=== PATIENT | male | born 1965 | race Two or more races ===

== ENCOUNTER 2016-12-07 01:03 | Inpatient (IN) | payer SELFPAY ==
[~2016-12-07] VITALS: Ht 172.7 cm; Wt 91.2 kg
[2016-12-07] VITALS (11 sets, daily range): BP systolic 91–136; BP diastolic 47–79
[2016-12-07] MEDS ORDERED: DILTIAZEM IV PUSH 25 MG/5 ML VIAL. IVP ONE (01:30)
[2016-12-07] MEDS ORDERED: DILTIAZEM 125 MG in IV DEXTROSE 5% 100 ML IV PRN (01:30)
[2016-12-07] MEDS ORDERED: ASPIRIN 81 MG TAB.CHEW PO ONE (01:30)
[2016-12-07 01:41] LABS: BASO # 0.1 x10^3/uL (0.0-0.2); BASO % 1 % (0-3); EOS % 1 % (0-3); HEMATOCRIT 50.2 % (39.0-53.0); HEMOGLOBIN 16.6 g/dL (13.0-17.5); LYMPH # 4.9 x10^3/uL (1.0-4.8); LYMPH % 46 % (24-48); MEAN CORPUSCULAR HEMOGLOBIN 29 pg (25-35); MEAN CORPUSCULAR HGB CONC 33 g/dL (31-37); MEAN CORPUSCULAR VOLUME 86 fL (79-100); MONO % 8 % (0-9); NEUT % 45 % (31-73); PLATELET COUNT 215 x10^3/uL (140-400); RED BLOOD COUNT 5.83 x10^6/uL (4.30-5.70); RED CELL DISTRIBUTION WIDTH 13.8 % (11.5-14.5); WHITE BLOOD COUNT 10.9 x10^3/uL (4.0-11.0)
[2016-12-07 01:58] LABS: CALCIUM 9.2 mg/dL (8.5-10.1); CREATININE 1.2 mg/dL (0.7-1.3); GFR 64.4; POTASSIUM 4.1 mmol/L (3.5-5.1)
[2016-12-07 02:01] LABS: ALBUMIN 3.9 g/dL (3.4-5.0); DIRECT BILIRUBIN 0.1 mg/dL (0.0-0.2); TOTAL BILIRUBIN 0.4 mg/dL (0.2-1.0); TOTAL PROTEIN 6.9 g/dL (6.4-8.2)
[2016-12-07] MEDS ORDERED: MORPHINE SULFATE 2 MG/ML DISP.SYRIN. IV PRN (04:30)
[2016-12-07] MEDS ORDERED: ONDANSETRON PF 4 MG/2 ML VIAL. IV PRN ×2 (04:30→11:15)
--- NOTE | 2016-12-07 05:46 | PHYS DOC ---
Past Medical History Past Medical History: High Cholesterol, Hypertension Past Surgical History: No Surgical History Alcohol Use: None Drug Use: None Adult General Chief Complaint Chief Complaint: CHEST PAIN HPI HPI 51-year-old male presenting to the emergency department today with palpitations and pain on the right side of his chest. The pain is sharp nonradiating. He also has associated shortness of breath with nausea. He denies diaphoresis. It started approximately 7:00 last night and is constant. Review of systems is negative for abdominal pain. Positive for nausea without vomiting. Negative for fevers or chills. All other review of systems is negative unless otherwise noted in history of present illness. Review of Systems Review of Systems SEE ABOVE. Current Medications Current Medications Current Medications Medications (Trade) Dose Ordered Sig/Sergio Start Time Stop Time Status Last Admin Dose Admin Aspirin (Children'S Aspirin) 324 mg 1X ONCE 12/07/16 01:30 12/07/16 01:31 DC Diltiazem HCl 20 mg 20 mg 1X ONCE 12/07/16 01:30 12/07/16 01:31 DC 12/07/16 01:44 20 MG Diltiazem HCl/ Dextrose (Cardizem) 125 ml @ 0 mls/hr CONT PRN 12/07/16 01:30 12/07/16 01:45 5 MLS/HR Allergies Allergies Allergies Coded Allergies Type Severity Reaction Last Updated Verified morphine Allergy Unknown 12/07/16 Yes Physical Exam Physical Exam Constitutional: Well developed, well nourished, no acute distress, non-toxic appearance. [] HENT: Normocephalic, atraumatic, bilateral external ears normal, oropharynx moist, no oral exudates, nose normal. [] Eyes: PERRLA, EOMI, conjunctiva normal, no discharge. [] Neck: Normal range of motion, no tenderness, supple, no stridor. [] Cardiovascular: Tachycardic rate with an irregular rhythm. No murmur present. Lungs & Thorax: Bilateral breath sounds clear to auscultation [] Abdomen: Bowel sounds normal, soft, no tenderness, no masses, no pulsatile masses. [] Skin: Warm, dry, no erythema, no rash. [] Back: No tenderness, no CVA tenderness. [] Extremities: No tenderness, no cyanosis, no clubbing, ROM intact, no edema. [] Neurologic: Alert and oriented X 3, normal motor function, normal sensory function, no focal deficits noted. [] Psychologic: Affect normal, judgement normal, mood normal. [] Current Patient Data Vital Signs Vital Signs Date Time Temp Pulse Resp B/P Pulse Ox O2 Delivery O2 Flow Rate FiO2 12/07/16 04:00 92 100/53 100 Room Air 12/07/16 01:09 97.7 18 97.7 Lab Values Laboratory Tests Test 12/07/16 01:30 White Blood Count 10.9x10^3/uL (4.0-11.0) Red Blood Count 5.83x10^6/uL (4.30-5.70) H Hemoglobin 16.6g/dL (13.0-17.5) Hematocrit 50.2% (39.0-53.0) Mean Corpuscular Volume 86fL (79-100) Mean Corpuscular Hemoglobin 29pg (25-35) Mean Corpuscular Hemoglobin Concent 33g/dL (31-37) Red Cell Distribution Width 13.8% (11.5-14.5) Platelet Count 215x10^3/uL (140-400) Neutrophils (%) (Auto) 45% (31-73) Lymphocytes (%) (Auto) 46% (24-48) Monocytes (%) (Auto) 8% (0-9) Eosinophils (%) (Auto) 1% (0-3) Basophils (%) (Auto) 1% (0-3) Neutrophils # (Auto) 4.9x10^3uL (1.8-7.7) Lymphocytes # (Auto) 4.9x10^3/uL (1.0-4.8) H Monocytes # (Auto) 0.9x10^3/uL (0.0-1.1) Eosinophils # (Auto) 0.1x10^3/uL (0.0-0.7) Basophils # (Auto) 0.1x10^3/uL (0.0-0.2) Sodium Level 143mmol/L (136-145) Potassium Level 4.1mmol/L (3.5-5.1) Chloride Level 104mmol/L (98-107) Carbon Dioxide Level 32mmol/L (21-32) Anion Gap 7 (6-14) Blood Urea Nitrogen 18mg/dL (8-26) Creatinine 1.2mg/dL (0.7-1.3) Estimated GFR (Cockcroft-Gault) 64.4 Glucose Level 102mg/dL (70-99) H Calcium Level 9.2mg/dL (8.5-10.1) Total Bilirubin 0.4mg/dL (0.2-1.0) Direct Bilirubin 0.1mg/dL (0.0-0.2) Aspartate Amino Transferase (AST) 18U/L (15-37) Alanine Aminotransferase (ALT) 28U/L (16-63) Alkaline Phosphatase 59U/L (46-116) Troponin I Quantitative < 0.017ng/mL (0.000-0.055) AP-Fej-R-Type Natriuretic Peptide 50pg/mL (0-124) Total Protein 6.9g/dL (6.4-8.2) Albumin 3.9g/dL (3.4-5.0) Lipase 120U/L (73-393) Laboratory Tests 12/07/16 01:30 Laboratory Tests 12/07/16 01:30 EKG EKG [] Irregular rhythm with a tachycardic rate. ST segments congruent. Mclean and intervals are within normal limits. Radiology/Procedures Radiology/Procedures [] Course & Med Decision Making Course & Med Decision Making Pertinent Labs and Imaging studies reviewed. (See chart for details) [] 51-year-old male presenting to the emergency department with palpitations found to have A. fib with RVR. EKG showed A. fib with RVR. Physical exam otherwise unremarkable. Blood work obtained aspirin given. Diltiazem push and drip given. Troponin negative. Patient was subsequently admitted to our hospital for further evaluation workup and care. Dragon Disclaimer Dragon Disclaimer This electronic medical record was generated, in whole or in part, using a voice recognition dictation system. Departure Departure Impression: Primary Impression: Atrial fibrillation with RVR Additional Impression: Chest pain Disposition: 09 ADMITTED INPATIENT Admitting Physician: Bteo Melendez Condition: STABLE Referrals: NO PCP (PCP) Problem Qualifiers CARMINA RÍOS MD Dec 07, 2016 05:45
--- NOTE | 2016-12-07 07:45 | RAD ---
Single view chest History:Chest pain . An AP view of the chest is submitted. Comparison: None. Findings: There is no significant infiltrate, pleural effusion, or pneumothorax. The pericardial cardiac silhouette is within normal limits in size. The trachea is in the midline. No acute osseous abnormality is identified. Impression: There is no evidence of acute cardiopulmonary disease.
--- NOTE | 2016-12-07 08:54 | ACF ---
Admit Criteria Forms Admit Criteria Forms Admit Criteria Forms ATRIAL FIBRILLATION Clinical Indications for Admission to Inpatient Care (Place 'X' for any and all applicable criteria): Admission indicated for ANY ONE of the following(1)(2)(3)(4)(5) : [ ]I. Myocardial ischemia [ ]II. Dyspnea or hypoxemia [ ]III. Hemodynamic instability [ ]IV. Heart failure (e.g., pulmonary edema) (7) [ ]V. New-onset (less than 48 hours) atrial fibrillation with high risk for causing complications secondary to comorbidities (eg, symptomatic heart failure ) [ ]. Altered mental status [ ]VII. Syncope [ ]VIII. Patient has implantable cardioverter defibrillator that has fired more than once within past 24hr or needs immediate adjustment of settings that cannot be done other than in inpatient setting. (8) [ ]IX. Suspected accessory pathway (e.g., Pqggz-Prirgkmvt-Ppayh syndrome) on ECG [ ]X. Recent systemic thromboembolism (eg, stroke) [ ]XI. Medication toxicity (e.g., digitalis) causing arrhythmia(9) [ ]XII. Underlying medical condition that necessitates inpatient care (e.g., thyrotoxicosis, pneumonia) (10) [ ]XIII. Continuous ECG monitoring is required for condition causing arrhythmia (e.g., severe hyperkalemia, hypokalemia, acid-base disturbance).(11)(12)(13) [X]XIV. Initiation of antiarrhythmic drug therapy is needed in patient at high risk of adverse effects as indicated by ANY ONE of the following: [ ]a) Significant structural heart disease (e.g., reduced ejection fraction, congenital heart disease, valvular heart disease) [ ]b) Prolonged QT interval [ ]c) Underlying sinus node or atrioventricular conduction disturbances [X]d) Need for treatment with antiarrhythmic drugs that have significant proarrhythmic potential (e.g., dofetilide, sotalol, procainamide) [ ]e) Patient whose sinus rhythm has never been observed on ECG [ ]XV. Intolerable symptoms despite optimal outpatient treatment [ ]XVI. Elective or urgent cardioversion that cannot be performed on outpatient basis or during observation care. [A] (Use also Atrial Fibrillation: Observation Care ) as appropriate.(14) [ ]XVII.Contraindications and/or Inappropriate clinical situations for Observational Care in patients with Atrial Fibrillation, when ANY ONE of the following is required: [ ]a) Patient with High risk of cardiac embolism (e.g, patients with previous cardiac embolism, LVEF < 40%, age >75 and patients with prosthetic valve) 18 [ ]b) Patient with Moderate risk including DM patient, CAD and patient aged 65-75 18 [ ]c) Patient with any change in cardiac biomarker especially troponin should be managed as high risk in an inpatient setting 19 [ ]d) Physician judgement irrespective of ECG and other diagnostic findings 20 [ ]XVIII.General contraindications and/or Inappropriate clinical situations for Observational Care in patients with Atrial Fibrillation, when ANY ONE of the following is required: [ ]a) Prediction of prolongation of LOS based on ANY ONE of the following may be considered as a contraindication for observational care 2, 3, 4, 5, 6, 7, 8, 9, 10, 11 [ ]i) Age > 65 yrs. [ ]ii) Patient arriving by ambulance [ ]iii) Patient with high acuity [ ]iv) Patient requiring vital sign monitoring [ ]v) Patient on IV medication [ ]b) Systolic blood pressures 180mmHg 3,12 [ ]c) Patient with altered mental status including delirium and other alteration of consciousness3 [ ]d) Patient whose discharge disposition will be to a [facility] home or rehabilitation home should not be managed in Emergency Department Observation Unit. CMS rule requires 3 days hospital stay before such placement.3,13 [ ]e) Patient with failure to thrive due to broad array of etiologies 3,16,17 [ ]f) Inability to ambulate 3,14 Extended stay beyond goal length of stay may be needed for (1)(25)(26): [ ]a) Unstable comorbidities [ ]b) Persistently uncontrolled atrial fibrillation or other arrhythmias [ ]c) Acute thromboembolic event (e.g., stroke, limb ischemia) [ ]d) Need for inpatient attainment of full anticoagulation The original [employer] content created by [employer] has been revised. The portions of the content which have been revised are identified through the use of italic text or in bold, and [employer] has neither reviewed nor approved the modified material. All other unmodified content is copyright [employer]. Please see references footnoted in the original [employer] edition 2016 JOSY FABIAN 11, 2017 08:53
[2016-12-07] MEDS ORDERED: ANTI-COAG MONITOR BY PHARMACY. MC PRN (09:15)
[2016-12-07] MEDS: DILTIAZEM HCL 120 MG CAP.ER.24H PO SCH (09:48)
[2016-12-07] MEDS: APIXABAN 5 MG TABLET. PO SCH ×2 (09:48→20:48)
--- NOTE | 2016-12-07 10:00 | CONS ---
DATE OF CONSULTATION: 12/07/2016 REASON FOR CONSULTATION: Atrial fibrillation. HISTORY OF PRESENT ILLNESS: The patient is a 51-year-old gentleman with past medical history as noted below, who presents to the hospital in the setting of palpitations. Upon admission to the ER, he was noted to have atrial fibrillation with a rapid ventricular response and was [facility] for titration of Cardizem therapy and evaluation of the AFib. The patient denies any chest pain, but does have some dyspnea. No syncope. No lower extremity edema. The patient denies any prior history of arrhythmia. No prior cardiovascular disease. PAST MEDICAL HISTORY: 1. Hypertension. 2. Obstructive sleep apnea. 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 He is . Denies any alcohol, tobacco or illicit drug use. FAMILY HISTORY: No early coronary artery disease or sudden cardiac . ALLERGIES: TO ASPIRIN AND MORPHINE. REVIEW OF SYSTEMS: Negative for 10 out of 14 systems reviewed, unless otherwise mentioned above in HPI. PHYSICAL EXAMINATION: VITAL SIGNS: Afebrile, heart rate 110, blood pressure 110/73, pulse ox 97% on room air. GENERAL: He is alert and oriented, in no acute distress. HEAD AND NECK: Unremarkable. CARDIAC: Irregularly irregular rhythm without any murmurs, rubs or gallops. LUNGS: Clear to auscultation bilaterally. ABDOMEN: Soft, nontender, nondistended. EXTREMITIES: No clubbing, cyanosis or edema. 2+ radial and dorsalis pedis pulses. NEUROLOGIC: No focal deficits. MUSCULOSKELETAL: No trauma. DIAGNOSTIC STUDIES: Hemoglobin, platelets within normal limits. Basic metabolic profile within normal limits. Cardiac enzymes negative x 1. Chest x-ray is unremarkable. EKG demonstrates atrial fibrillation with a rapid ventricular response. IMPRESSION: 1. New onset atrial fibrillation, likely in the setting of obesity, hypertension and obstructive sleep apnea. RECOMMENDATIONS: 1. After discussion of risks and benefits of anticoagulation, we will initiate the patient Eliquis 5 mg p.o. b.i.d. with the aim of planing had to go with a CARLEY-guided cardioversion in approximately 24-48 hours after adequate anticoagulation and rate control. Thank you for this consultation. RITU JAMES MD DR: SANTOS/charlie JOB#: [id number] / [id number]
--- NOTE | 2016-12-07 11:14 | PDOC1 ---
History and Physical Current Problem List Problem List Problems Medical Problems: (1) Atrial fibrillation with RVR Status: Acute (2) Chest pain Status: Acute Current Medications Current Medications Current Medications Medications (Trade) Dose Ordered Sig/[facility] Start Time Stop Time Status Last Admin Dose Admin Apixaban (Eliquis) 5 mg BID 12/07/16 10:00 12/07/16 09:48 5 MG Aspirin (Children'S Aspirin) 324 mg 1X ONCE 12/07/16 01:30 12/07/16 01:31 DC Diltiazem HCl (Cardizem 24hr Cd) 120 mg DAILY 12/07/16 10:00 12/07/16 09:48 120 MG Diltiazem HCl 20 mg 20 mg 1X ONCE 12/07/16 01:30 12/07/16 01:31 DC 12/07/16 01:44 20 MG Diltiazem HCl/ Dextrose (Cardizem) 125 ml @ 0 mls/hr CONT PRN 12/07/16 01:30 12/07/16 01:45 5 MLS/HR Info (Anti-Coagulation Monitoring By Pharmacy) 1 each PRN DAILY PRN 12/07/16 09:15 Morphine Sulfate 2 mg PRN Q2HR PRN 12/07/16 04:30 12/08/16 04:29 Ondansetron HCl (Zofran) 4 mg PRN Q8HRS PRN 12/07/16 04:30 12/08/16 04:29 Allergies Allergies Allergies Coded Allergies Type Severity Reaction Last Updated Verified aspirin Allergy Unknown 12/07/16 Yes morphine Allergy Unknown 12/07/16 Yes ROS Review of System CONSTITUTIONAL: No fever or chills EYES: No recent changes SKIN: No rash or itching CARDIOVASCULAR: No chest pain, syncope, palpitations, or edema RESPIRATORY: No SOB or cough GASTROINTESTINAL: No nausea, vomiting or abdominal pain NEUROLOGICAL: No headaches or weakness ENDOCRINE: No cold or heat intolerance GENITOURINARY: No urgency or frequency of urination MUSCULOSKELETAL: No back pain or joint pain LYMPHATICS: No enlarged lymph nodes PSYCHIATRIC: No anxiety or depression Physical Exam Physical Exam GEN.: No apparent distress. Alert and oriented. HEENT: Head is normocephalic, atraumatic NECK: Supple. no jvd LUNGS: Clear to auscultation. normal airflow HEART: RRR, S1, S2 present. Peripheral pulses intact ABDOMEN: Soft, nontender. Positive bowel sounds. EXTREMITIES: Without any cyanosis. NEUROLOGIC: Normal speech, normal tone PSYCHIATRIC: Normal affect, normal mood. SKIN: No ulcerations Vitals Vitals Vital Signs Date Time Temp Pulse Resp B/P Pulse Ox O2 Delivery O2 Flow Rate FiO2 12/07/16 09:48 91 132/61 12/07/16 07:55 18 12/07/16 05:47 Room Air 12/07/16 04:40 100 12/07/16 01:09 97.7 97.7 Labs Labs Laboratory Tests Test 12/07/16 01:30 White Blood Count 10.9x10^3/uL (4.0-11.0) Red Blood Count 5.83x10^6/uL (4.30-5.70) Hemoglobin 16.6g/dL (13.0-17.5) Hematocrit 50.2% (39.0-53.0) Mean Corpuscular Volume 86fL (79-100) Mean Corpuscular Hemoglobin 29pg (25-35) Mean Corpuscular Hemoglobin Concent 33g/dL (31-37) Red Cell Distribution Width 13.8% (11.5-14.5) Platelet Count 215x10^3/uL (140-400) Neutrophils (%) (Auto) 45% (31-73) Lymphocytes (%) (Auto) 46% (24-48) Monocytes (%) (Auto) 8% (0-9) Eosinophils (%) (Auto) 1% (0-3) Basophils (%) (Auto) 1% (0-3) Neutrophils # (Auto) 4.9x10^3uL (1.8-7.7) Lymphocytes # (Auto) 4.9x10^3/uL (1.0-4.8) Monocytes # (Auto) 0.9x10^3/uL (0.0-1.1) Eosinophils # (Auto) 0.1x10^3/uL (0.0-0.7) Basophils # (Auto) 0.1x10^3/uL (0.0-0.2) Sodium Level 143mmol/L (136-145) Potassium Level 4.1mmol/L (3.5-5.1) Chloride Level 104mmol/L (98-107) Carbon Dioxide Level 32mmol/L (21-32) Anion Gap 7 (6-14) Blood Urea Nitrogen 18mg/dL (8-26) Creatinine 1.2mg/dL (0.7-1.3) Estimated GFR (Cockcroft-Gault) 64.4 Glucose Level 102mg/dL (70-99) Calcium Level 9.2mg/dL (8.5-10.1) Total Bilirubin 0.4mg/dL (0.2-1.0) Direct Bilirubin 0.1mg/dL (0.0-0.2) Aspartate Amino Transf (AST/SGOT) 18U/L (15-37) Alanine Aminotransferase (ALT/SGPT) 28U/L (16-63) Alkaline Phosphatase 59U/L (46-116) Troponin I Quantitative < 0.017ng/mL (0.000-0.055) HV-Dxw-O-Type Natriuretic Peptide 50pg/mL (0-124) Total Protein 6.9g/dL (6.4-8.2) Albumin 3.9g/dL (3.4-5.0) Lipase 120U/L (73-393) Laboratory Tests Test 12/07/16 01:30 White Blood Count 10.9x10^3/uL (4.0-11.0) Red Blood Count 5.83x10^6/uL (4.30-5.70) Hemoglobin 16.6g/dL (13.0-17.5) Hematocrit 50.2% (39.0-53.0) Mean Corpuscular Volume 86fL (79-100) Mean Corpuscular Hemoglobin 29pg (25-35) Mean Corpuscular Hemoglobin Concent 33g/dL (31-37) Red Cell Distribution Width 13.8% (11.5-14.5) Platelet Count 215x10^3/uL (140-400) Neutrophils (%) (Auto) 45% (31-73) Lymphocytes (%) (Auto) 46% (24-48) Monocytes (%) (Auto) 8% (0-9) Eosinophils (%) (Auto) 1% (0-3) Basophils (%) (Auto) 1% (0-3) Neutrophils # (Auto) 4.9x10^3uL (1.8-7.7) Lymphocytes # (Auto) 4.9x10^3/uL (1.0-4.8) Monocytes # (Auto) 0.9x10^3/uL (0.0-1.1) Eosinophils # (Auto) 0.1x10^3/uL (0.0-0.7) Basophils # (Auto) 0.1x10^3/uL (0.0-0.2) Sodium Level 143mmol/L (136-145) Potassium Level 4.1mmol/L (3.5-5.1) Chloride Level 104mmol/L (98-107) Carbon Dioxide Level 32mmol/L (21-32) Anion Gap 7 (6-14) Blood Urea Nitrogen 18mg/dL (8-26) Creatinine 1.2mg/dL (0.7-1.3) Estimated GFR (Cockcroft-Gault) 64.4 Glucose Level 102mg/dL (70-99) Calcium Level 9.2mg/dL (8.5-10.1) Total Bilirubin 0.4mg/dL (0.2-1.0) Direct Bilirubin 0.1mg/dL (0.0-0.2) Aspartate Amino Transf (AST/SGOT) 18U/L (15-37) Alanine Aminotransferase (ALT/SGPT) 28U/L (16-63) Alkaline Phosphatase 59U/L (46-116) Troponin I Quantitative < 0.017ng/mL (0.000-0.055) EI-Xqj-Y-Type Natriuretic Peptide 50pg/mL (0-124) Total Protein 6.9g/dL (6.4-8.2) Albumin 3.9g/dL (3.4-5.0) Lipase 120U/L (73-393) VTE Prophylaxis Ordered VTE Prophylaxis Devices: Yes VTE Pharmacological Prophylaxi: Yes MARÍA ELENA GUSTAFSON MD Dec 07, 2016 11:14
[2016-12-07] MEDS ORDERED: hydrALAZINE 20 MG/ML VIAL. IVP PRN (11:15)
[2016-12-07] MEDS ORDERED: ACETAMINOPHEN 325 MG TABLET. PO PRN (11:15)
[2016-12-07] MEDS ORDERED: ALBUTEROL SULFATE 2.5 MG/3 ML NEBU. NEB PRN (11:15)
[2016-12-07 12:01] LABS: FREE T4 0.88 ng/dL (0.76-1.46)
--- NOTE | 2016-12-07 18:50 | EKG ---
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
--- NOTE | 2016-12-08 00:58 | HP ---
ADMIT DATE: 12/07/2016 CHIEF COMPLAINT: AFib, palpitations. HISTORY OF PRESENT ILLNESS: This is a 51-year-old male patient with prior history of hypertension and obstructive sleep apnea, presented to the ER with complaints of palpitations noted of 1 day duration. The patient states that his symptoms are triggered by some stress in his life. Upon arrival to the ER, he was diagnosed with AFib with RVR and ____ cardiogenic symptoms improved. At the time of my examination this morning, he denies any chest pain, shortness of breath, palpitations, syncope or lower extremity swelling. PAST MEDICAL HISTORY: Hypertension, GERD, obstructive sleep apnea. PERSONAL HISTORY: No smoking, no alcohol, no drug abuse. FAMILY HISTORY: His father had some blood disorder, but denies any coronary artery disease. REVIEW OF SYSTEMS: Please see my electronic H and P. PHYSICAL EXAMINATION: Please see my electronic H and P. LABORATORY FINDINGS: WBC 10.9, hemoglobin is 16.6, hematocrit 50.2, MCV is 80, platelets 215. Chemistry: Sodium 143, potassium 4.1, chloride is 104, carbon dioxide 32, anion gap 13, BUN is 18, creatinine is 1.2. IMAGING STUDIES: Chest x-ray: No acute process seen. EKG: I could not able to review, as per the report, ____ AFib with RVR. ASSESSMENT: AFib with RVR, currently resolved and we are starting on rate controlling medications. PLAN: 1. oral anticoagulation. 2. Rule out TSH and T3 and T4. 3. Discuss possible Cardiology evaluation on Friday and CARLEY. 4. We will continue anticoagulation for 48 hours. 5. Two sets of troponins. 6. Limit coffee intake. 7. Telemetry. 8. Home medical regimen and home medications reconciled. MARÍA ELENA GUSTAFSON MD DR: YVES/charlie JOB#: [id number] / [id number] ALAYNA
[2016-12-08 03:00] VITALS: BP 118/69
[2016-12-08 05:38] LABS: BASO % 0 % (0-3); EOS % 1 % (0-3); HEMATOCRIT 49.8 % (39.0-53.0); HEMOGLOBIN 16.9 g/dL (13.0-17.5); LYMPH # 3.4 x10^3/uL (1.0-4.8); LYMPH % 37 % (24-48); MEAN CORPUSCULAR HEMOGLOBIN 29 pg (25-35); MEAN CORPUSCULAR HGB CONC 34 g/dL (31-37); MEAN CORPUSCULAR VOLUME 84 fL (79-100); MONO % 9 % (0-9); NEUT % 53 % (31-73); PLATELET COUNT 210 x10^3/uL (140-400); RED BLOOD COUNT 5.91 x10^6/uL (4.30-5.70); RED CELL DISTRIBUTION WIDTH 13.8 % (11.5-14.5); WHITE BLOOD COUNT 9.1 x10^3/uL (4.0-11.0)
[2016-12-08 06:06] LABS: CHOLESTEROL/HDL RATIO 3.7
[2016-12-08 06:35] LABS: CALCIUM 9.1 mg/dL (8.5-10.1); CREATININE 1.1 mg/dL (0.7-1.3); GFR 71.1; POTASSIUM 4.6 mmol/L (3.5-5.1)
[2016-12-08 07:00] VITALS: BP 111/73
[2016-12-08] MEDS: DILTIAZEM HCL 120 MG CAP.ER.24H PO SCH (10:13)
[2016-12-08] MEDS: APIXABAN 5 MG TABLET. PO SCH (10:14)
--- NOTE | 2016-12-08 10:37 | PDOC ---
Provider Note Provider Note Pt. converted to SR. DC home on cardizem and asa 81mg daily No eliquis He will call us in a few weeks when he gets insurance again so that he can be sent an event monitor at no cost. f/u in our office in 3 months or so. Will obtain echo today prior to dc. RITU JAMES MD Dec 08, 2016 10:37
[2016-12-08 11:20] VITALS: BP 123/73
[2016-12-08 11:30] VITALS: BP 123/73
[2016-12-08 15:06] VITALS: BP 125/83
[2016-12-08] MEDS ORDERED: DILT120C97 PO (15:23)
--- NOTE | 2016-12-09 08:12 | CARD ---
APPROVED REPORT EXAM: Two-dimensional and M-mode echocardiogram with Doppler and color Doppler. Other Information Quality : Good INDICATION Atrial Fibrillation 2D DIMENSIONS RVDd3.1 (2.9-3.5cm)Left Atrium(2D)3.1 (1.6-4.0cm) IVSd1.2 (0.7-1.1cm)Aortic Root(2D)2.7 (2.0-3.7cm) LVDd4.4 (3.9-5.9cm)LVOT Diameter1.9 (1.8-2.4cm) PWd1.1 (0.7-1.1cm)LVDs3.2 (2.5-4.0cm) FS (%) 27.6 %SV46.2 ml LVEF(%)53.9 (>50%) Aortic Valve AoV Peak Masoud.127.3cm/sAoV VTI21.9cm AO Peak GR.6.5mmHgLVOT VTI 23.37cm AO Mean GR.4mmHgAVA (VTI)3.10cm2 Mitral Valve MV E Vzjelmyl78.1cm/sMV DECEL FAQS617et MV A Jddrpbek90.3cm/sE/A Ratio1.6 TDI Lateral E' P. V12.74cm/sMedial E' P. V9.01cm/s E/Lateral E'7.0E/Medial E'9.9 Tricuspid Valve TR P. Zfoytbnu816ac/sRAP CYGGNTHH8ixOg TR Peak Gr.15suCtGFFP57vyXy Pulmonary Vein S1 Frzrkhug04.2cm/sS2 Piraomtp47.46cm/s D2 Epaunewq50.5cm/sPVa [id number] LEFT VENTRICLE The left ventricle is normal size. There is borderline to mild concentric left ventricular hypertroph y. The left ventricular systolic function is normal and the ejection fraction is within normal range. The Ejection Fraction is 55%. There is normal LV segmental wall motion. Tissue Doppler imaging revea ls mild left ventricular diastolic dysfunction. RIGHT VENTRICLE The right ventricle is normal size. The right ventricular systolic function is normal. ATRIA The left atrium size is normal. The right atrium size is normal. The interatrial septum is intact wit h no evidence for an atrial septal defect or patent foramen ovale as noted on 2-D or Doppler imaging. AORTIC VALVE The aortic valve is normal in structure and function. Doppler and Color Flow revealed no significant aortic regurgitation. There is no significant aortic valvular stenosis. MITRAL VALVE The mitral valve is normal in structure and function. There is no evidence of mitral valve prolapse. There is no mitral valve stenosis. Doppler and Color-flow revealed trace mitral regurgitation. TRICUSPID VALVE The tricuspid valve is normal in structure and function. Doppler and Color Flow revealed physiologica l tricuspid regurgitation. There is no pulmonary hypertension. The PA pressure was estimated at 20 mm Hg. There is no tricuspid valve stenosis. PULMONIC VALVE Doppler and Color Flow revealed trace to mild pulmonic valvular regurgitation. There is no pulmonic v alvular stenosis. GREAT VESSELS The aortic root is normal in size. The ascending aorta is normal in size. The IVC is normal in size a nd collapses >50% with inspiration. PERICARDIAL EFFUSION There is no evidence of significant pericardial effusion. Critical Notification Critical Value: No <Conclusion> The left ventricular systolic function is normal and the ejection fraction is within normal range. Th e Ejection Fraction is 55%. There is normal LV segmental wall motion.
== END 2016-12-08 17:58 | disposition home or self-care (01) | DRG 310 ==
LOC: ER 01:03 → 2 SOUTH 04:00
PROVIDERS: ADMIT Internal Medicine; ATTEND Internal Medicine
DX: I48.91 Unspecified atrial fibrillation (principal); I10 Essential (primary) hypertension; G47.33 Obstructive sleep apnea (adult) (pediatric); E66.9 Obesity, unspecified; E78.00 Pure hypercholesterolemia, unspecified; K21.9 Gastro-esophageal reflux disease without esophagitis; Z88.5 Allergy status to narcotic agent; Z88.8 Allergy status to other drugs, medicaments and biological substances
CPT/HCPCS: 36415; 71010; 80048; 80061; 80076; 83690; 83880; 84439; 84443; 84484; 85027; 93005; 93306; 94250; 96365; 96366; J3490; 99285-25